=== PATIENT | male | born 1990 | race Caucasian/White ===

== ENCOUNTER 2016-05-28 20:32 | Emergency (ER) | payer MEDICAID ==
[~2016-05-28] VITALS: Ht 167.6 cm; Wt 79.5 kg
[2016-05-28 20:49] VITALS: Ht 167.6 cm; Wt 79.5 kg
[2016-05-28] MEDS ORDERED: GUAI120S26 PO (21:37)
[2016-05-28] MEDS ORDERED: IBUP400T22 PO (21:37)
[2016-05-28] MEDS ORDERED: CETI10CA PO (21:37)
[2016-05-28] MEDS ORDERED: ALBU8.5H3 INH (21:37)
--- NOTE | 2016-05-28 21:43 | ERD ---
ER Documentation Chief Complaint Date/Time DATE: 05/28/16 TIME: 21:41 Chief Complaint sore throat, cough HPI 25-year-old male presents to emergency department for complaints of cough, sore throat, on and off wheezing for 3 days patient has been taking, does not cough any phlegm or blood. Patient does not have any shortness breath or chest pain. Patient did not take any medications to to help with symptoms. Patient does not have any sick contacts. Patient does not have any fever or chills. ROS All systems reviewed and are negative except as per history of present illness. Medications Home Meds Active Scripts Ibuprofen* (Motrin*) 400 Mg Tab, 400 MG PO Q6H Y for PAIN AND OR ELEVATED TEMP, #30 TAB Prov:JAY PALMER NP 05/28/16 Albuterol Sulfate* (Proair HFA*) 8.5 Gm Hfa.aer.ad, 2 PUFF INH Q4H Y for WHEEZING AND SOB, #1 INHALER Prov:JAY PALMER NP 05/28/16 Cetirizine Hcl* (Zyrtec*) 10 Mg Capsule, 10 MG PO DAILY, #30 TAB.CHEW Prov:JAY PALMER NP 05/28/16 Mabvcfklgtx-P-Xflchxcvys Hb* (Guaifenesin* DM Syrup) 120 Ml Syrup, 10 ML PO Q4H Y for COUGH, #120 ML Prov:JAY PALMER NP 05/28/16 Allergies Allergies: Coded Allergies: No Known Allergy (Unverified , 05/28/16) PMhx/Soc Medical and Surgical Hx: pt denies Medical Hx, pt denies Surgical Hx FmHx Family History: No coronary disease, No diabetes, No other Physical Exam Vitals Vital Signs Date Time Temp Pulse Resp B/P Pulse Ox O2 Delivery O2 Flow Rate FiO2 05/28/16 20:49 98.2 97 20 132/80 100 Physical Exam GENERAL: The patient is well developed and appropriate for usual state of health, in no apparent distress. CHEST: Clear to auscultation bilaterally. There are no rales, wheezes or rhonchi. HEART: Regular rate and rhythm. No murmurs, clicks, rubs or gallops. No S3 or S4. ABDOMEN: Soft, nontender and nondistended. Good bowel sounds. No rebound or guarding. No gross peritonitis. No gross organomegaly or masses. No Delaney sign or McBurney point tenderness. BACK: No midline or flank tenderness. EXTREMITIES: Equal pulses bilaterally. There is no peripheral clubbing, cyanosis or edema. No focal swelling or erythema. Full range of motion. Grossly neurovascularly intact. NEURO: Alert and oriented. Cranial nerves 2-12 intact. Motor strength in all 4 extremities with 5/5 strength. Sensation grossly intact. Normal speech and gait. SKIN: There is no apparent rash or petechia. The skin is warm and dry. HEMATOLOGIC AND LYMPHATIC: There is no evidence of excessive bruising or lymphedema. No gross cervical, axillary, or inguinal lymphadenopathy. Procedures/MDM Medical Decision Making: Patient symptoms are most likely consistent with acute bronchitis, which viral in origin. There is low suspicion for Pneumonia at this time since patients lungs sounds are clear, patient O2 saturation is normal and patient doesnt show any respiratory distress. Radiology exam not indicated at this time. There is low suspicion for other cardiopulmonary emergencies at this time such as CHF, Pulmonary Embolism, Pneumothorax, Aortic Aneurysm or any other cardiopulmonary emergencies at this time. There is low suspicion for sepsis. Patient appears well and is hemodynamically stable. Patient does not have any fever Disposition: Home. Condition: Stable Prescriptions: Guaifenesin DM albuterol.Ibuprofen Instructions: Patient is advised to take medications as prescribed. Patient is advised to rest. Patient advised to increase fluid intake, do humidifier at home and if possible, do salt water gargles. Patient is advised that if symptoms are worse, shortness of breath, uncontrolled fever, stridor, vomiting, worst signs and symptoms to return to emergency department immediately. Otherwise, patient is advised to follow up with primary doctor in 5-7 days. Departure Diagnosis: Primary Impression: Acute bronchitis Bronchitis organism: unspecified organism Qualified Code: J20.9 - Acute bronchitis, unspecified organism Condition: Stable Patient Instructions: Bronchitis With Wheezing (Adult) Referrals[facility] Usted se doyle hecho un examen mdico de control que le indica que no est en bernard condicin que requiera tratamiento urgente en el Departamento de Emergencia. Un estudio ms profundo y el tratamiento de sharma condicin pueden esperar sin ningn riesgo hasta que usted sea atendida/o en el consultorio de sharma mdico o ebrnard cl mike. Es responsabilidad suya arreglar bernadr brandon para el seguimiento del elisa. MANEJO DE CONDICIONES NO URGENTES EN EL FUTURO 1) Si usted tiene un mdico de atencin primaria: Usted debera llamar a sharma mdico de atencin primaria antes de venir al departamento de emergencia. Despus de las horas de consultorio, sharma doctor o sharma asociado/a est disponible por telfono. El mdico o enfermero de hanh en el servicio telefnico puede asesorarle por chen medio para atender el problema, o elisa contrario se puede programar bernard brandon. 2) Si usted no tiene un mdico de atencin primaria: Llame al mdico o clnica de referencia que aparece abajo kerrie las horas de consultorio para hacer bernard brandon para que le vean. CLINICAS: [facility] [phone] [address] [facility] [phone] [address] [facility]. [facility] [phone] [facility] [facility] [phone] [address] [facility] [place] [id number] [phone] [facility]. [phone] [address] [facility]. [facility] () Usted se doyle hecho un examen mdico de control que le indica que no est en bernard condicin que requiera tratamiento urgente en el Departamento de Emergencia. Un estudio ms profundo y el tratamiento de sharma condicin pueden esperar sin ningn riesgo hasta que usted sea atendida/o en el consultorio de sharma mdico o bernard cl mike. Es responsabilidad suya arreglar bernard brandon para el seguimiento del elisa. MANEJO DE CONDICIONES NO URGENTES EN EL FUTURO 1) Si usted tiene un mdico de atencin primaria: Usted debera llamar a sharma mdico de atencin primaria antes de venir al departamento de emergencia. Despus de las horas de consultorio, sharma doctor o sharma asociado/a est disponible por telfono. El mdico o enfermero de hanh en el servicio telefnico puede asesorarle por chen medio para atender el problema, o elisa contrario se puede programar bernard brandon. 2) Si usted no tiene un mdico de atencin primaria: Llame al mdico o condado institucions de referencia que aparece abajo kerrie las horas de consultorio para hacer bernard brandon para que le vean. SI USTED NO PUEDE PAGAR PARA ALE UN MEDICO puede ir a: [facility] [address] [place] [address] [facility] [address] [place] [address] [facility] [address] [place] [address] [facility] [address] [place], [place] [id number] CUISIA,JAY Gonsalez NP May 28, 2016 21:43
== END 2016-05-28 21:44 | disposition home or self-care (01) ==
LOC: FTE 20:32 → E/R 21:44
DX: J20.9 Acute bronchitis, unspecified (principal)
CPT/HCPCS: 99283

== ENCOUNTER 2017-09-12 23:02 | Emergency (ER) | END 2017-09-13 00:48 | disposition home or self-care (01) ==

== ENCOUNTER 2017-12-10 15:32 | Emergency (ER) | END 2017-12-10 19:06 | disposition home or self-care (01) ==